=== PATIENT | female | born 1995 ===

== ENCOUNTER 2021-06-14 17:59 | Emergency (ER) | payer BC ==
[2021-06-14] MEDS ORDERED: Promethazine 25 MG Tab PO ONE (18:51)
== END 2021-06-14 19:15 | disposition home or self-care (01) ==
LOC: FB.ED 17:59
DX: O21.9 Vomiting of pregnancy, unspecified (principal); R19.7 Diarrhea, unspecified; Z88.8 Allergy status to other drugs, medicaments and biological substances; Z20.822 Contact with and (suspected) exposure to COVID-19; Z3A.12 12 weeks gestation of pregnancy
CPT/HCPCS: 99283; A9270-GY; U0002